=== PATIENT | male | born 1960 | race Caucasian/White ===

== ENCOUNTER 2017-08-03 13:18 | Emergency (ER) | payer OTHER ==
[~2017-08-03] VITALS: Ht 188 cm; Wt 115.6 kg
[~2017-08-03 13:18] MED LIST: VERAPAMIL HCL80 MG PO
[2017-08-03] MEDS ORDERED: ASPIRIN81 M2 PO (13:56)
[2017-08-03] MEDS ORDERED: LATUDA40 MG PO (13:57)
[2017-08-03] MEDS ORDERED: NORVASC10 MG PO (13:57)
[2017-08-03] MEDS ORDERED: COGENTIN1 MG PO (13:58)
[2017-08-03 15:06] VITALS: BP 117/90
== END 2017-08-03 15:06 | disposition home or self-care (01) ==
LOC: EME 13:18
PROC: 3E0234Z Introduction of Serum, Toxoid and Vaccine into Muscle, Percutaneous Approach (ICD-10-PCS; principal; 2017-08-03)
DX: S40.021A Contusion of right upper arm, initial encounter (principal); S80.11XA Contusion of right lower leg, initial encounter; S60.811A Abrasion of right wrist, initial encounter; M25.571 Pain in right ankle and joints of right foot; V03.10XA Pedestrian on foot injured in collision with car, pick-up truck or van in traffic accident, initial encounter; Y93.01 Activity, walking, marching and hiking; Z23 Encounter for immunization; I10 Essential (primary) hypertension; Z79.82 Long term (current) use of aspirin; F17.200 Nicotine dependence, unspecified, uncomplicated
CPT/HCPCS: 73110; 73590; 99281; 99283